=== PATIENT | female | born 1990 | race Caucasian/White ===

== ENCOUNTER 2023-10-18 15:49 | Emergency (ER) | payer OTHER, SELFPAY ==
[2023-10-18 15:55] VITALS: BP 103/71
[2023-10-18] MEDS: DECADRON 10 MG PO (17:08)
[2023-10-18] MEDS: TORADOL 30 MG IM (17:09)
--- NOTE | 2023-10-18 19:30 | ED.GENMED ---
History of Present Illness
General
Chief Complaint: Back Pain
Source: patient and family
Exam Limitations: none
Time Seen by Provider: 10/18/23 16:12
Nursing documentation reviewed up to this point in time: agreed with
Travel History
Have you had any contact with someone who has COVID-19?: No
Do you have any symptoms of coronavirus? Fever > 100 degrees, chills, cough, shortness of breath, sore throat, loss of taste or smell, muscle aches, or headache?: No
History of Present Illness
History of Present Illness:
33-year-old female with history of chronic back pain presenting to the emergency department today with concerns of ongoing back pain over the past 24 hours or so seem to start when she lifted something awkwardly. No numbness weakness no fevers no
change in bowel or bladder function no abdominal pain no nausea vomiting
Review of Systems
Review of Systems
Allergies reviewed?: Yes
All Other Systems: ROS reviewed and negative except as documented in HPI and ROS
Phy Exam
Physical Exam
Physical Exam:
GENERAL: Alert , in no apparent distress
EYE: pupils equal and reactive
NECK: Supple, no significant adenopathy.
ENT: o/p clr, mmm.
CARDIAC: Regular rate and rhythm .
LUNGS: Clear breath sounds bilaterally, no acute respiratory distress, no wheezes/rales/rhonchi
ABDOMEN: Soft, without focal tenderness, no r/g, no cvat
NEUROLOGICAL: Alert and oriented, no focal neuro deficits normal neurologic evaluation of lower extremity
SKIN: Warm and dry, skin intact.
MUSCULOSKELETAL: Slight increased back pain with straight leg raise of the left leg. No edema, well perfused.
PSYCH: Normal and appropriate interaction.
Course
Orders/Labs/Results
Orders:
Orders
10/18/23 16:37
Dexamethasone [Decadron] 10 mg PO NOW STA
Ketorolac [Toradol] 30 mg IM NOW STA
Lumbar Spine, 2 or 3 View [CR Lumbar Spine 2 Or 3 Views] Urgent
Comment:
Reason For Exam: back pain
Vital Signs
Initial and Last Documented VS:
Initial Vital Signs
Temp Pulse Resp BP Pulse Ox
98.0 F 74 16 103/71 98
10/18/23 15:55 10/18/23 15:55 10/18/23 15:55 10/18/23 15:55 10/18/23 15:55
Last Documented Vital Signs
Temp Pulse Resp BP Pulse Ox
98.0 F 74 16 103/71 98
10/18/23 15:55 10/18/23 15:55 10/18/23 15:55 10/18/23 15:55 10/18/23 15:55
MDM/Problems Addressed
MDM/Problems Addressed:
33-year-old female presenting to the emergency department today with concerns of low back pain. Has had similar symptoms many times in the past and was told that she had a herniated disc. Denies any bowel or bladder dysfunction denies any numbness
weakness normal neurologic evaluation. Appears be consistent with mechanical back pain with no red flag symptoms. Patient was given Toradol and steroid with improvement of symptoms. Patient stable for outpatient management advised for close
outpatient follow-up.
*Critical Care Note
Total Time (30-74mins, 75-104mins- exclusive of procedures): Not Applicable
ED Attending Note
-
Portions of this chart may have been created with voice recognition software.� Occasional wrong word or��sound alike� substitutions may have occurred due to the inherent limitations of voice recognition software.
Discharge Plan
Departure
Patient Disposition: Home (Routine Discharge)
Date of Disposition: 10/18/23
Time of Disposition: 19:33
Patient with high blood pressure during this ER visit?: No
Condition: Good
Covid-19: Not Applicable
Discharge Problem:
Back pain
Instructions: Low Back Pain (DC)
Prescriptions:
New
prednisone 20 mg tablet
40 mg PO DAILY 4 Days Qty: 8 0RF
cyclobenzaprine 10 mg tablet
10 mg PO HS PRN (Reason: muscle spasm) Qty: 7 0RF
ibuprofen 600 mg tablet
600 mg PO TID PRN (Reason: pain) Qty: 14 0RF
No Action
amoxicillin-pot clavulanate 1 TABLET tablet
1 tab PO Q12 Qty: 14 0RF
Referrals:
Jesse Jimenze MD [Active] - Follow up in 1 week
Mei Lynch DO [Family Provider] -
Activity Restrictions/Additional Instructions:
You came to the emergency department today with concerns of back discomfort. Here you had a reassuring x-ray. Please take the prescribed occasions and follow-up closely with the back doctor. Return to the emergency department for any worsening,
new or concerning symptoms.
Interventions
Interventions:
*ED COVID-19 Vaccine History Last Done: 10/18/23 15:55
ED-Musculoskeletal Assessment Last Done: 10/18/23 17:21
[2023-10-18 19:36] VITALS: BP 100/72
== END 2023-10-18 19:58 | disposition home or self-care (01) ==
LOC: EMR 15:49
PROVIDERS: EMERGENCY PHYSICIAN Emergency Medicine; FAMILY PHYSICIAN Family Medicine
DX: M54.9 Dorsalgia, unspecified (principal)
CPT/HCPCS: 99283; 96372; 72100